=== PATIENT | male | born 1995 | race Caucasian/White ===

== ENCOUNTER 2017-10-11 15:17 | Emergency (ER) | payer OTHER, SELFPAY | END 2017-10-11 17:05 | disposition home or self-care (01) | PROVIDERS: Emergency Provider Nurse Practitioner; Family Provider Family Medicine; Visit Provider Nurse Practitioner | DX: K52.9 Noninfective gastroenteritis and colitis, unspecified (principal); J45.909 Unspecified asthma, uncomplicated | CPT/HCPCS: 87804; 99201 ==

== ENCOUNTER 2017-11-15 10:48 | Day surgery (SDC) | payer OTHER, SELFPAY ==
[2017-11-15] VITALS (12 sets, daily range): BP systolic 120–153; BP diastolic 59–96; PULSE 85–98; RESP 16–22; TEMP 36.6–43; O2SAT 92–97; BMI 33.6
--- NOTE | 2017-11-15 11:28 | P.PN_ITS ---
[facility] Anesthesia Checklist - Patient Identification Patient Identification: Arm Band, Verbal (Name & ) - Structural Data Admitted From: Home Planned Operative Procedure/s: i&d perianal abcess Consent for Planned Operative Procedure(s) Verified: Yes Verified Documents: Surgical Consent - NPO Status Verified Time NPO: 00:00 - Chart Verification Results Verified: None - Additional verifications Patient : No Anesthesia Reactions: No Hx Blood Transfusions: No Blood Transfusion Reaction: No Cephalosporin Allergy: No Previous Colonoscopy: No - Cardiovascular Assessment Heart Sounds: S1 & S2 Pulse Strength: Baseline Pulse Rhythm: Regular Peripheral Edema: No - Airway Assessment C-Spine Mobility Assessed: Yes TMJ Mobility Assessed: Yes Dentition: Good Dentition - Neurological Assessment Level of Consciousness: Awake - Genitourinary Assessment Voided combination presser to O.R.: Yes - Anesthesia Plan Anesthesia Risk discussed: Yes ASA Class: I Anesthesia Type: General [facility] Anesthesia HX Medical History: Reports:: Asthma, Gastroesophageal Reflux Disease(GERD) Laterality Cases: Right: Other Other Surgeries: Yes: Other (I&D Perinal Abscess) *Family Hx:: No significant family history
--- NOTE | 2017-11-15 13:36 | HMH.OPNOTE ---
Date of procedure: 11/15/17 Pre-op Diagnosis:: Perirectal abscess Post-op diagnosis:: same Procedure performed:: Incision and drainage of perirectal abscess Surgeon:: Gabriel Carrillo MD CRUISE COORDINATOR:: Trace Borges Anesthesia: LMA Estimated blood loss (mL): 20 Clinical Note:: Patient is a 22-year-old white male who several months ago and then admitted and found to have what appeared to be intersphincteric perianal abscess. He underwent simple incision and drainage. The area healed rather quickly and he did not undergo continued outpatient packing. His cultures did return E. coli which was resistant to Augmentin. He ultimately had healed completely. He contacted the office yesterday stating that he had similar tenderness and discomfort near the same location. Healing in the office yesterday and found to have some induration in the right anterior lateral location consistent with early perianal abscess. Tentative plan was for operative intervention in 48 hours with initiation of oral antibiotics. He was started on levofloxacin based on prior cultures. However, the patient contacted the office this morning stating that he had more pain and more swelling. Plan was made to proceed with more urgent incision and drainage. Operative findings:: Right anterior lateral intersphincteric abscess Operative note:: Consent was obtained and patient was taken to the operating room. He was given preoperative intravenous antibiotics. In the operating room general anesthesia was induced. He was positioned in traditional lithotomy position. The area was prepped and draped in the standard surgical fashion. Digital examination was performed which was unremarkable. [place] anoscope was inserted. There was a area of fluctuance in the right anterior lateral location. Incision was made. There was a very large amount of thick pus which immediately exuded from the wound. This was sent for culture. Wound was probed and additional pus was evacuated. Incision was formed into somewhat of a cruciate incision to allow for adequate drainage. The wound was probed and appeared as though the abscess cavity was intersphincteric and internally there was no obvious internal fistula opening but it was rather superficial to the rectal mucosa. The wound was thoroughly irrigated. Local anesthetic was infiltrated was packed with 1/2 inch plain packing gauze. Clean dry sterile dressing was applied. Condition: stable Disposition: PACU Complications:: None
--- NOTE | 2017-11-15 13:40 | P.OP_ITS ---
Date of procedure: 11/15/17 Pre-op Diagnosis:: Perirectal abscess Post-op diagnosis:: same Procedure performed:: Incision and drainage of perirectal abscess Surgeon:: Gabriel Carrillo MD HOME SALES SERVICE PROFESSIONAL:: Trace Borges Anesthesia: LMA Estimated blood loss (mL): 20 Clinical Note:: Patient is a 22-year-old white male who several months ago and then admitted and found to have what appeared to be intersphincteric perianal abscess. He underwent simple incision and drainage. The area healed rather quickly and he did not undergo continued outpatient packing. His cultures did return E. coli which was resistant to Augmentin. He ultimately had healed completely. He contacted the office yesterday stating that he had similar tenderness and discomfort near the same location. Healing in the office yesterday and found to have some induration in the right anterior lateral location consistent with early perianal abscess. Tentative plan was for operative intervention in 48 hours with initiation of oral antibiotics. He was started on levofloxacin based on prior cultures. However, the patient contacted the office this morning stating that he had more pain and more swelling. Plan was made to proceed with more urgent incision and drainage. Operative findings:: Right anterior lateral intersphincteric abscess Operative note:: Consent was obtained and patient was taken to the operating room. He was given preoperative intravenous antibiotics. In the operating room general anesthesia was induced. He was positioned in traditional lithotomy position. The area was prepped and draped in the standard surgical fashion. Digital examination was performed which was unremarkable. [place] anoscope was inserted. There was a area of fluctuance in the right anterior lateral location. Incision was made. There was a very large amount of thick pus which immediately exuded from the wound. This was sent for culture. Wound was probed and additional pus was evacuated. Incision was formed into somewhat of a cruciate incision to allow for adequate drainage. The wound was probed and appeared as though the abscess cavity was intersphincteric and internally there was no obvious internal fistula opening but it was rather superficial to the rectal mucosa. The wound was thoroughly irrigated. Local anesthetic was infiltrated was packed with 1/2 inch plain packing gauze. Clean dry sterile dressing was applied. Condition: stable Disposition: PACU Complications:: None
--- NOTE | 2017-11-15 13:43 | HMH.ANESI ---
[facility] Anesthesia Record Part I Intake, IV Amount: 800 Estimated blood loss (mL): 10 Urine output (mL): 0 Blood Pressure: 146/69 SaO2: 95 Pulse Rate: 92 Respiratory Rate: 16 Temperature: 99.3 F Patient is:: Drowsy, Stable Stable to PACU at:: 13:40
--- NOTE | 2017-11-15 13:43 | HMH.ANESII ---
[facility] Anesthesia Record Part II Discharge Time: 14:10 Destination: [facility] PACU nurse assessment reviewed?: Yes Patient Condition:: Good Anesthesia Complications:: None
--- NOTE | 2017-11-15 13:44 | P.PN_ITS ---
[facility] Anesthesia Record Part II Discharge Time: 14:10 Destination: [facility] PACU nurse assessment reviewed?: Yes Patient Condition:: Good Anesthesia Complications:: None
== END 2017-11-15 14:55 | disposition home or self-care (01) ==
LOC: OR 10:50
PROVIDERS: Family Provider Family Medicine; PCP Family Medicine; Visit Provider Surgery
PROC: (CPT 46050; principal; 2017-11-15 12:00)
DX: K61.1 Rectal abscess (principal)
CPT/HCPCS: 46050; 87070; 87077; 87186; 87205; 96374; J0131; J2405

== ENCOUNTER 2022-04-10 18:36 | Emergency (ER) | payer BC, OTHER, SELFPAY ==
[2022-04-10 18:55] VITALS: BP 131/81; PULSE 72; RESP 19; TEMP 36.7; O2SAT 99; BMI 29.1
--- NOTE | 2022-04-10 19:23 | HMH.EDUTC ---
[facility] [place] Clinical Impression: Chigger bites Disposition: Home, Self-Care Condition on Discharge: Good Instructions: DI for Insect Bites and Stings, Choose the Best Insect Repellent, How to Care for an Insect Bite or Sting Prescriptions: Triamcinolone Acetonide 1 applic TP BID #15 gm Prescription Printed Referrals: Berry Iverson MD [Primary Care Provider] - Time of Disposition: 19:30 Medical Decision Making - Michael Inquiry Pt receiving controlled substance: No Vital Signs: 04/10/22 18:55 Temperature 98.1 F Temperature Source Oral Pulse Rate [Right Brachial] 72 Respiratory Rate 19 Blood Pressure [Right Arm] 131/81 Blood Pressure Mean [Right Arm] 97 Blood Pressure Source [Right Arm] Automatic Cuff Blood Pressure Position [Right Arm] Sitting 02 Sat by Pulse Oximetry 99 Oxygen Delivery Method Room Air [facility] [place] - General Chief complaint: Urgent [facility] Center Stated complaint: severe bug bites Time Seen by Provider: 04/10/22 19:23 Mode of Arrival: Ambulatory Source of Information: Patient Limitations: No Limitations Description of Symptoms (Recalled from Triage Doc. by RN): PATIENT C/O INSECT BITES TO BILATERAL LEGS X 3 DAYS HEENT Symptoms (Recalled from RN notes): No Resp Symptoms (Recalled from RN notes): No Skin Symptoms (Recalled from RN notes): Yes MS Symptoms (Recalled from RN notes): No Functional Status (Recalled from RN notes): WNL - History of Present Illness Provider Complaint: 26 yr old male presnets for insect bites to erin lower legs and groin. pt states he was in a field yesterday and the bites showed up later in the evening. pt states he been putting calamine lotion on them but its not helping - Related Data Home Medications Medication Instructions Recorded Confirmed Omeprazole [Omeprazole 20mg 20 mg PO DAILY 11/15/17 11/06/18 Capsule] Previous Rx's Medication Instructions Recorded Triamcinolone Acetonide 1 applic TP BID #15 gm 04/10/22 Allergies Allergy/AdvReac Type Severity Reaction Status Date / Time No Known Drug Allergies Allergy Unknown Verified 04/10/18 09:21 [NKDA] - Worker's Comp Is this a Worker's Comp case?: No [facility] History - Hepatitis A Screen Attestation statement:: This patient has been screened for Hepatitis A risk factors. I have reviewed the patient's past medical history: Yes Medical History: Reports:: Asthma, Gastroesophageal Reflux Disease(GERD) Denies:: Cancer, Diabetes Mellitus Type 1, Diabetes Mellitus Type 2, MRSA, Seizures Other Medical History: Denies: Blood Transfusion Reaction Laterality Cases: Right: Other Other Surgeries: Yes: Other Amputation: No Fractures: No - Social History Smoking Status: Light tobacco smoker Tobacco Type: cigarettes # Packs/Day (cigarettes): 1 Alcohol Intake: current Alcohol Intake Frequency:: holidays/special occasions only Substance Use Type: denies use Occupational Status: employed Housing: house Household Members: spouse Family Hx:: Hypertension ROS Obtained: Yes Systems reviewed as appropriate & no additional complaints - Constitutional Constitutional: Reports system reviewed and no additional complaints, except as docu, Denies fever(s) - Eyes Eyes: Reports system reviewed and no additional complaints, except as docu, Denies change in vision - ENT Ears, Nose, Mouth, and Throat: Reports system reviewed and no additional complaints, except as docu, Denies sore throat - Cardiovascular Cardiovascular: Reports system reviewed and no additional complaints, except as docu, Denies chest pain - Respiratory Respiratory: Reports system reviewed and no additional complaints, except as docu, Denies cough - Gastrointestinal Gastrointestingal: Reports: system reviewed and no additional complaints, except as docu. Denies: abdominal pain - Musculoskeletal Musculoskeletal: Reports system reviewed and no additional complaints, except as docu, Denies joint pain -
[2022-04-10 19:33] VITALS: BP 131/81; PULSE 72; RESP 19; TEMP 36.7; O2SAT 99
== END 2022-04-10 19:45 | disposition home or self-care (01) ==
PROVIDERS: Emergency Provider Nurse Practitioner Family; PCP Emergency Medicine
DX: S80.862A Insect bite (nonvenomous), left lower leg, initial encounter (principal); S80.861A Insect bite (nonvenomous), right lower leg, initial encounter; W57.XXXA Bitten or stung by nonvenomous insect and other nonvenomous arthropods, initial encounter
CPT/HCPCS: 96372; 99212; G0463